=== PATIENT | female | born 1965 | race African-American/Black ===

== ENCOUNTER 2016-11-27 12:30 | Emergency (ER) | payer OTHER ==
[~2016-11-27] VITALS: Ht 167.6 cm; Wt 80.0 kg
[2016-11-27] MEDS ORDERED: IPRATROPIUM BROMIDE (0.02%) 0.5MG/2.5ML NEB HHN STA (12:47)
[2016-11-27] MEDS ORDERED: ALBUTEROL (0.083%) 2.5MG/3ML NEB HHN STA (12:47)
[2016-11-27] MEDS ORDERED: PREDNISONE 20MG TABLET PO ONE (13:00)
[2016-11-27 14:58] VITALS: BP 147/89
== END 2016-11-27 15:19 | disposition home or self-care (01) ==
LOC: EDBD 12:58 → ER 12:58
DX: J45.901 Unspecified asthma with (acute) exacerbation (principal); F43.9 Reaction to severe stress, unspecified
CPT/HCPCS: 93005; 94640; 99283; J7512; J7611